=== PATIENT | female | born 1965 | race African-American/Black ===

== ENCOUNTER 2021-07-16 12:09 | Inpatient (IN) | payer OTHER ==
[~2021-07-16] VITALS: Ht 165.1 cm; Wt 73.5 kg
[2021-07-16] MEDS ORDERED: KETOROLAC 30MG/ML VIAL IV ONE (12:45)
[2021-07-16] MEDS ORDERED: ONDANSETRON HCL 4MG/2ML INJ IV STA (13:11)
[2021-07-16] MEDS ORDERED: HYDROMORPHONE HCL/PF 2MG/ML CPJ IV ONE (13:15)
[2021-07-16] MEDS ORDERED: SODIUM CHLORIDE 0.9% 1,000 ML IV ONE (13:15)
[2021-07-16 14:08] LABS: BASOPHILS % 0.8 % (0.0-2.0); EOSINOPHILS % 0.6 % (0.0-5.0); HEMATOCRIT. 47.3 % (36.0-48.0); HEMOGLOBIN. 15.7 g/dL (12.0-16.0); MEAN CORPUSCULAR HEMOGLOBIN 28.7 pg (28.0-32.0); MEAN CORPUSCULAR VOLUME 86.4 fL (81.0-99.0); MEAN PLATELET VOLUME 8.4 fl (7.4-10.4); MONOCYTES % 3.9 % (2.0-8.0); NEUTROPHILS % 70.7 % (40.0-76.0); PLATELET 335 x1000/uL (130-400); RED BLOOD CELL COUNT 5.48 mill/uL (4.2-5.4)
[2021-07-16 14:14] LABS: CHLORIDE 108 mEq/L (98-107)
[2021-07-16] MEDS ORDERED: LORAZEPAM 2MG/ML CPJ IV ONE (15:00)
[2021-07-16] MEDS ORDERED: ONDANSETRON HCL 4MG/2ML INJ IV PRN (18:45)
[2021-07-16] MEDS: FAMOTIDINE 20MG/2ML VIAL IV SCH (18:45)
[2021-07-16] MEDS: HYDROMORPHONE HCL/PF 2MG/ML CPJ IV PRN (19:45)
[2021-07-16 22:54] LABS: COLOR URINE YELLOW (YELLOW); KETONES URINE NEGATIVE (NEGATIVE); LEUKOCYTE ESTERASE URINE 1+ (NEGATIVE); NITRITE URINE NEGATIVE (NEGATIVE); OCCULT BLOOD URINE NEGATIVE (NEGATIVE); PROTEIN URINE NEGATIVE (NEGATIVE); SPECIFIC GRAVITY URINE 1.014 (1.005-1.030); UROBILINOGEN URINE 0.2 E.U./dL (0.2-1.0)
[2021-07-16 22:59] LABS: CLARITY URINE CLOUDY (CLEAR)
[2021-07-16 23:13] LABS: *AMPHETAMINES SCREEN URINE NEGATIVE (NEGATIVE); *BARBITURATES SCREEN URINE NEGATIVE (NEGATIVE); *BENZODIAZEPINES SCREEN URINE NEGATIVE (NEGATIVE); *COCAINE SCREEN URINE NEGATIVE (NEGATIVE)
[2021-07-16 23:14] LABS: CANNABINOID URINE SCREEN NEGATIVE (NEGATIVE); METHADONE URINE SCREEN NEGATIVE (NEGATIVE); OPIATES URINE SCREEN PRESUMTIVE POSITIVE (NEGATIVE); PHENCYCLIDINE URINE SCREEN NEGATIVE (NEGATIVE)
[2021-07-17] MEDS: HYDROMORPHONE HCL/PF 2MG/ML CPJ IV PRN ×4 (03:04→20:21)
[2021-07-17 03:25] VITALS: BP 118/77
[2021-07-17] MEDS: SODIUM CHLORIDE 0.45% 1,000 ML IV SCH ×2 (04:55→14:43)
[2021-07-17] MEDS: FAMOTIDINE 20MG/2ML VIAL IV SCH (09:07)
[2021-07-17] MEDS ORDERED: LORAZEPAM 2MG/ML CPJ IV SCH (11:15)
[2021-07-17] MEDS: METOCLOPRAMIDE HCL 10MG/2ML VIAL IV SCH ×2 (11:23→19:05)
[2021-07-17 12:00] VITALS: BP 133/88
[2021-07-17 12:22] LABS: BASOPHILS % 0.8 % (0.0-2.0); EOSINOPHILS % 1.3 % (0.0-5.0); HEMATOCRIT. 40.9 % (36.0-48.0); HEMOGLOBIN. 13.2 g/dL (12.0-16.0); LYMPHOCYTES % 31.1 % (20.0-50.0); MEAN CORPUSCULAR HEMOGLOBIN 28.2 pg (28.0-32.0); MONOCYTES % 6.8 % (2.0-8.0); PLATELET 287 x1000/uL (130-400); RED CELL DISTRIBUTION WIDTH 15.5 % (11.6-14.6)
[2021-07-17 12:30] LABS: CHLORIDE 107 mEq/L (98-107)
[2021-07-17 16:00] VITALS: BP 112/83
[2021-07-17] MEDS ORDERED: NALOXONE HCL 0.4MG/ML VIAL IV PRN (19:15)
[2021-07-17 20:00] VITALS: BP 108/64
[2021-07-18] VITALS (7 sets, daily range): BP systolic 100–147; BP diastolic 75–100
[2021-07-18] MEDS: METOCLOPRAMIDE HCL 10MG/2ML VIAL IV SCH ×4 (00:22→19:06)
[2021-07-18] MEDS: HYDROMORPHONE HCL/PF 2MG/ML CPJ IV PRN ×6 (00:22→22:24)
[2021-07-18] MEDS: SODIUM CHLORIDE 0.45% 1,000 ML IV SCH ×3 (00:23→22:30)
[2021-07-18] MEDS: FAMOTIDINE 20MG/2ML VIAL IV SCH (09:22)
[2021-07-18] MEDS ORDERED: SENNOSIDES 8.6MG TABLET PO PRN (14:00)
[2021-07-18] MEDS: POLYETHYLENE GLYCOL 3350 (17GM) 1 DOSE PACK PO SCH (14:00)
[2021-07-18] MEDS ORDERED: LACTULOSE 20G/30ML UDC PO PRN (14:00)
[2021-07-18] MEDS: PANTOPRAZOLE SODIUM 40 MG/VIAL IV SCH ×2 (14:00→22:31)
[2021-07-18] MEDS: ONDANSETRON HCL 4MG/2ML INJ IV SCH ×2 (14:00→20:00)
[2021-07-18] MEDS: DOCUSATE SODIUM 100MG CAPSULE PO SCH (17:00)
[2021-07-18 20:56] LABS: CHLORIDE 107 mEq/L (98-107)
[2021-07-19] VITALS: BP 152/71
[2021-07-19] MEDS ORDERED: POTASSIUM CHLORIDE 20MEQ TABLET SR PO NR
[2021-07-19] MEDS: METOCLOPRAMIDE HCL 10MG/2ML VIAL IV SCH ×3 (01:55→11:48)
[2021-07-19] MEDS: ONDANSETRON HCL 4MG/2ML INJ IV SCH ×2 (01:55→08:31)
[2021-07-19] MEDS: HYDROMORPHONE HCL/PF 2MG/ML CPJ IV PRN ×4 (02:27→14:49)
[2021-07-19 04:00] VITALS: BP 128/87
[2021-07-19] MEDS: SODIUM CHLORIDE 0.45% 1,000 ML IV SCH (06:33)
[2021-07-19 07:35] LABS: BASOPHILS % 0.9 % (0.0-2.0); EOSINOPHILS % 2.7 % (0.0-5.0); HEMATOCRIT. 39.5 % (36.0-48.0); HEMOGLOBIN. 13.1 g/dL (12.0-16.0); LYMPHOCYTES % 36.1 % (20.0-50.0); MEAN CORPUSCULAR HEMOGLOBIN 28.7 pg (28.0-32.0); MEAN CORPUSCULAR VOLUME 86.4 fL (81.0-99.0); MEAN PLATELET VOLUME 8.3 fl (7.4-10.4); MONOCYTES % 6.9 % (2.0-8.0); NEUTROPHILS % 53.4 % (40.0-76.0); PLATELET 293 x1000/uL (130-400); RED BLOOD CELL COUNT 4.57 mill/uL (4.2-5.4); RED CELL DISTRIBUTION WIDTH 15.1 % (11.6-14.6)
[2021-07-19 07:44] LABS: CHLORIDE 109 mEq/L (98-107)
[2021-07-19 08:00] VITALS: BP 138/88
[2021-07-19] MEDS: POLYETHYLENE GLYCOL 3350 (17GM) 1 DOSE PACK PO SCH ×2 (08:31→09:00)
[2021-07-19] MEDS: DOCUSATE SODIUM 100MG CAPSULE PO SCH (08:31)
[2021-07-19] MEDS: PANTOPRAZOLE SODIUM 40 MG/VIAL IV SCH (08:31)
[2021-07-19] MEDS ORDERED: PSYLLIUM SEED PACKET PO SCH (09:00)
[2021-07-19 12:00] VITALS: BP 125/82
[2021-07-19 14:49] VITALS: BP 125/82
[2021-08-10] MEDS ORDERED: ONDANSETRON HCL 4MG/2ML INJ IV PRN (11:55)
== END 2021-07-19 16:21 | disposition home or self-care (01) | DRG 254 ==
LOC: ER 12:09 → 6EST 16:48 → ENRESERV 07-17 02:28
PROVIDERS: ADMIT Family Medicine; ATTEND Family Medicine
DX: K59.03 Drug induced constipation (principal); E86.0 Dehydration; F11.20 Opioid dependence, uncomplicated; G89.29 Other chronic pain; T40.2X5A Adverse effect of other opioids, initial encounter; R33.9 Retention of urine, unspecified; Z88.5 Allergy status to narcotic agent; Y92.89 Other specified places as the place of occurrence of the external cause; Z90.49 Acquired absence of other specified parts of digestive tract; F17.200 Nicotine dependence, unspecified, uncomplicated
CPT/HCPCS: 36415; 72128; 72131; 72146; 72148; 74018; 76700; 80048; 80053; 80076; 80305; 81003; 82248; 85025; 94760; 97162; 97166; 99285; C1893; C9113; J1170; J2060; J2405; J2765; J3490; J7030

== ENCOUNTER 2021-11-30 10:15 | Emergency (ER) | payer OTHER ==
[~2021-11-30] VITALS: Ht 165.1 cm; Wt 78.0 kg
[2021-11-30] MEDS ORDERED: ONDANSETRON HCL 4MG/2ML INJ IV STA (10:33)
[2021-11-30] MEDS ORDERED: SODIUM CHLORIDE 0.9% 500 ML IV ONE (10:45)
[2021-11-30] MEDS ORDERED: HYDROMORPHONE HCL/PF 2MG/ML CPJ IV ONE ×2 (11:00→13:00)
[2021-11-30 11:11] LABS: BASOPHILS % 0.7 % (0.0-2.0); EOSINOPHILS % 1.1 % (0.0-5.0); HEMATOCRIT. 42.7 % (36.0-48.0); HEMOGLOBIN. 14.5 g/dL (12.0-16.0); LYMPHOCYTES % 29.6 % (20.0-50.0); MEAN CORPUSCULAR HEMOGLOBIN 30.4 pg (28.0-32.0); MEAN CORPUSCULAR VOLUME 89.7 fL (81.0-99.0); MEAN PLATELET VOLUME 7.6 fl (7.4-10.4); MONOCYTES % 5.6 % (2.0-8.0); PLATELET 323 x1000/uL (130-400); RED BLOOD CELL COUNT 4.76 mill/uL (4.2-5.4); RED CELL DISTRIBUTION WIDTH 14.9 % (11.6-14.6)
[2021-11-30 11:16] LABS: CHLORIDE 112 mEq/L (98-107)
[2021-11-30 11:21] LABS: ETHANOL BLOOD < 10 mg/dL
[2021-11-30] MEDS ORDERED: LORAZEPAM 2MG/ML CPJ IV ONE (13:00)
[2021-11-30 13:30] LABS: CLARITY URINE CLOUDY (CLEAR); COLOR URINE YELLOW (YELLOW); KETONES URINE NEGATIVE (NEGATIVE); LEUKOCYTE ESTERASE URINE TRACE (NEGATIVE); NITRITE URINE NEGATIVE (NEGATIVE); OCCULT BLOOD URINE NEGATIVE (NEGATIVE); PH URINE 7.5 (4.5-8.0); PROTEIN URINE NEGATIVE (NEGATIVE); SPECIFIC GRAVITY URINE 1.012 (1.005-1.030); UROBILINOGEN URINE 0.2 E.U./dL (0.2-1.0)
[2021-11-30 14:06] LABS: *AMPHETAMINES SCREEN URINE NEGATIVE (NEGATIVE); *COCAINE SCREEN URINE NEGATIVE (NEGATIVE); METHADONE URINE SCREEN NEGATIVE (NEGATIVE); OPIATES URINE SCREEN PRESUMTIVE POSITIVE (NEGATIVE); PHENCYCLIDINE URINE SCREEN NEGATIVE (NEGATIVE)
[2021-11-30 14:07] LABS: *BARBITURATES SCREEN URINE NEGATIVE (NEGATIVE); *BENZODIAZEPINES SCREEN URINE NEGATIVE (NEGATIVE); CANNABINOID URINE SCREEN NEGATIVE (NEGATIVE)
[2021-11-30 15:31] VITALS: BP 98/73
[2021-11-30] MEDS ORDERED: BACL-141 MT (15:31)
[2021-11-30] MEDS ORDERED: LIDO700A15 TP (15:31)
[2021-11-30] MEDS ORDERED: ACET-2708 MT (15:31)
[2021-11-30] MEDS ORDERED: ONDA4TAB5 MT (15:31)
== END 2021-11-30 16:54 | disposition home or self-care (01) ==
LOC: ER 10:15
DX: M54.42 Lumbago with sciatica, left side (principal); G89.29 Other chronic pain; I10 Essential (primary) hypertension; F11.10 Opioid abuse, uncomplicated; F17.210 Nicotine dependence, cigarettes, uncomplicated; Z98.890 Other specified postprocedural states; Z88.5 Allergy status to narcotic agent; Z88.0 Allergy status to penicillin
CPT/HCPCS: 36415; 72146; 72148; 80053; 80305; 80320; 81003; 83605; 83690; 85025; 93005; 96361; 96374; 96375; 96376; 99285; J1170; J2060; J2405; J7040; G0480